=== PATIENT | female | born 1990 | race Caucasian/White ===

== ENCOUNTER 2018-07-08 11:22 | Inpatient (IN) | payer BC ==
[~2018-07-08] VITALS: Ht 160 cm; Wt 77.1 kg
[2018-07-08] MEDS ORDERED: LR 1,000 ML IV ONE (12:34)
[2018-07-08] MEDS ORDERED: CEFAZOLIN 2 GM IVPB PREMIX 50 ML IV ONE (12:45)
[2018-07-08 12:58] LABS: HEMOGLOBIN 13.3 g/dL (12.0-16.0); LYMPHOCYTES # (AUTO) 1.1 K/uL (1.0-5.5); MEAN CORPUSCULAR HEMOGLOBIN 28 pg (27-31); MEAN CORPUSCULAR HGB CONC 33 % (32-36); RED CELL DISTRIBUTION WIDTH 12.4 % (9.0-15.0)
[2018-07-08 13:13] LABS: BASOPHILS # (AUTO) 0.3 K/uL (0.0-0.2); BASOPHILS % (AUTO) 1.4 % (0.0-2.0); EOSINOPHILS % (AUTO) 0.1 % (0.0-4.0); HEMATOCRIT 40.7 % (36-48); MEAN CORPUSCULAR VOLUME 86 fL (79.0-98.0); MONOCYTES # (AUTO) 0.7 K/uL (0.0-1.0); MONOCYTES % (AUTO) 3.9 % (1.7-9.3); NEUTROPHILS # (AUTO) 16.4 K/uL (1.8-7.7); NEUTROPHILS % (AUTO) 88.6 % (40.0-70.0); PLATELET COUNT (AUTO) 334 K/uL (130-430); RED BLOOD CELL COUNT(AUTO) 4.75 MIL/uL (4.2-6.2); WHITE BLOOD COUNT (AUTO) 18.5 K/uL (4.8-10.8)
[2018-07-08] MEDS ORDERED: METOCLOPRAMIDE HCL 10 MG/2 ML VIAL IVP PRN (13:30)
[2018-07-08] MEDS ORDERED: LR 1,000 ML IV SCH ×2 (13:30→17:13)
[2018-07-08] MEDS ORDERED: NALOXONE HCL 0.4 MG/ML AMP (NARCAN) IVP PRN (13:30)
[2018-07-08] MEDS ORDERED: MORPHINE SULFATE 10MG/10ML PF AMP SP SCH (13:30)
[2018-07-08] MEDS ORDERED: ONDANSETRON HCL 4 MG/2 ML VIAL IVP PRN (13:30)
[2018-07-08] MEDS ORDERED: KETOROLAC TROMETHAMINE 60 MG/2 ML VIAL IM PRN (13:30)
[2018-07-08] MEDS ORDERED: DIPHENHYDRAMINE INJ 50 MG/ML VIAL IM PRN (13:30)
[2018-07-08] MEDS ORDERED: NS 1000 ML IV.SOLN IV ONE (13:45)
[2018-07-08] MEDS ORDERED: MIDAZOLAM HCL 5 MG/ML VIAL (VERSED) IV ONE (13:45)
[2018-07-08] MEDS ORDERED: LR 1,000 ML IV.SOLN IV ONE (13:45)
[2018-07-08] MEDS ORDERED: BUPIVACAINE /DEX PF 0.75% SPINAL 2 ML AMP INJ ONE (13:45)
[2018-07-08] MEDS ORDERED: ONDANSETRON HCL 4 MG/2 ML VIAL ONE (13:45)
[2018-07-08] MEDS ORDERED: OXYTOCIN 10 UNIT/ML VIAL ONE (13:45)
[2018-07-08] MEDS ORDERED: MORPHINE SULFATE 10MG/10ML PF AMP ONE (13:45)
[2018-07-08 13:50] VITALS: BP_SYST 98
[2018-07-08] MEDS ORDERED: OXYTOCIN/0.9 % SODIUM CHLORIDE 1,000 ML IV ONE ×2 (16:33→17:13)
[2018-07-08] MEDS ORDERED: TERBUTALINE SULFATE 1 MG/ML VIAL SUBCUT ONE (17:03)
[2018-07-08] MEDS ORDERED: LANOLIN 7 GM OINT. TP PRN (17:15)
[2018-07-08] MEDS ORDERED: MEASLES,MUMPS&RUBELLA VACC/PF 12500 UNIT/0.5 ML VIAL SUBQ PRN (17:15)
[2018-07-08] MEDS ORDERED: ANUSOL 1 EA SUPP.RECT (PREPARATION H) RC PRN (17:15)
[2018-07-08] MEDS ORDERED: BISACODYL 10 MG/SUPPOSITORY RC PRN (17:15)
[2018-07-08] MEDS ORDERED: RHO(D) IMMUNE GLOBULIN/MALTOSE 1500 UNITS/1.3 ML (WINHRO) IM PRN (17:15)
[2018-07-08] MEDS ORDERED: DIPH-TET-PERTUS Vaccine 0.5 ML VIAL (ADACEL) I.M. PRN (17:15)
[2018-07-08] MEDS: KETOROLAC TROMETHAMINE 30 MG VIAL IVP SCH (18:14)
[2018-07-08] MEDS ORDERED: HYDROcodone/ACETAMIN 5-325 MG TAB (NORCO/ VICODIN) PO PRN (18:30)
[2018-07-08] MEDS ORDERED: OXYCODONE/ACETAMINOPHEN 5-325 TABLET PO PRN ×2 (18:30)
[2018-07-08] MEDS: CEFAZOLIN 1 GM IVPB PREMIX 50 ML IV SCH (20:00)
[2018-07-08] MEDS ORDERED: TEMAZEPAM 15 MG CAPSULE PO PRN (21:00)
[2018-07-09] MEDS: KETOROLAC TROMETHAMINE 30 MG VIAL IVP SCH ×2 (00:58→06:03)
[2018-07-09] MEDS: CEFAZOLIN 1 GM IVPB PREMIX 50 ML IV SCH ×2 (02:43→08:07)
[2018-07-09 06:54] LABS: BASOPHILS % (AUTO) 0.2 % (0.0-2.0); EOSINOPHILS % (AUTO) 0.3 % (0.0-4.0); HEMATOCRIT 29.6 % (36-48); LYMPHOCYTES # (AUTO) 1.4 K/uL (1.0-5.5); LYMPHOCYTES % (AUTO) 9.3 % (20.5-51.5); MEAN CORPUSCULAR HEMOGLOBIN 29 pg (27-31); MEAN CORPUSCULAR HGB CONC 34 % (32-36); MEAN CORPUSCULAR VOLUME 86 fL (79.0-98.0); MONOCYTES # (AUTO) 1.2 K/uL (0.0-1.0); MONOCYTES % (AUTO) 8.2 % (1.7-9.3); NEUTROPHILS # (AUTO) 12.3 K/uL (1.8-7.7); PLATELET COUNT (AUTO) 250 K/uL (130-430); RED BLOOD CELL COUNT(AUTO) 3.44 MIL/uL (4.2-6.2); RED CELL DISTRIBUTION WIDTH 12.4 % (9.0-15.0); WHITE BLOOD COUNT (AUTO) 14.9 K/uL (4.8-10.8)
[2018-07-09] MEDS ORDERED: KETOROLAC TROMETHAMINE 30 MG VIAL IVP ONE (11:59)
[2018-07-09] MEDS: SENNOSIDES/DOCUSATE SODIUM 1 TAB TABLET(SENOKOT-S) PO PRN (12:28)
[2018-07-09] MEDS: SIMETHICONE 80 MG TAB.CHEW PO PRN (12:29)
[2018-07-09] MEDS: DOCUSATE SODIUM 100 MG CAPSULE PO PRN ×2 (12:29→23:54)
[2018-07-09] MEDS: IBUPROFEN 600 MG TABLET PO SCH ×2 (18:16→23:55)
[2018-07-10] MEDS: IBUPROFEN 600 MG TABLET PO SCH ×4 (06:01→23:55)
[2018-07-10] MEDS: SIMETHICONE 80 MG TAB.CHEW PO PRN (12:12)
[2018-07-10] MEDS: SENNOSIDES/DOCUSATE SODIUM 1 TAB TABLET(SENOKOT-S) PO PRN (12:12)
[2018-07-10] MEDS: DOCUSATE SODIUM 100 MG CAPSULE PO PRN (12:12)
[2018-07-11] MEDS: IBUPROFEN 600 MG TABLET PO SCH (06:17)
== END 2018-07-11 12:07 | disposition home or self-care (01) | DRG 788 ==
LOC: SPU 11:22 → OBSVTOIN 12:00 → SPU 23:11
PROVIDERS: ADMIT Specialist; ATTEND Specialist
PROC: 10D00Z1 Extraction of Products of Conception, Low, Open Approach (ICD-10-PCS; principal; 2018-07-08 13:00)
DX: O76 Abnormality in fetal heart rate and rhythm complicating labor and delivery (principal); O77.9 Labor and delivery complicated by fetal stress, unspecified; Z37.0 Single live birth; Z3A.39 39 weeks gestation of pregnancy
CPT/HCPCS: 36415; 76815; 85025; 86592; 86886; 86900; 86901; 94760; G0378; J0690; J1885; J2250; J2274; J2405; J2590; J3105; J3490; J7030; J7120